=== PATIENT | female | born 1975 | race Caucasian/White ===

== ENCOUNTER → 2017-03-06 | Outpatient (CLI) | payer OTHER, BC ==
[~2017-03-06] MED LIST: CHEWABLE ASPIRI81 M1 PO; FLAGYL500 MG PO; HYDROCHLOROTH12.5 M1 PO; HYZAAR 50-12.51 EACH PO; PREDNISONE 20MG20 MG PO; PRILOSEC20 MG PO; VITAMIN C500 M3 PO; XYZAL5 MG PO; ZYRTEC10 MG PO
--- NOTE | 2017-03-06 13:28 | RADIOLOGY REPORT PS360 ---
US RUQ-(ABD LTD)1ORGAN/QUAD/FU HISTORY: ELEVATED LIVER ENZYMES ORDERING PHYSICIAN: Chai Zuniga MD PATIENT AGE: 41 years COMPARISON: None FINDINGS: PANCREAS:Unremarkable. No obvious mass or abnormal fluid collection. No ductal dilatation LIVER:No focal liver lesions demonstrated. Homogeneous echogenicity. No intrahepatic biliary ductal dilatation evident RIGHT KIDNEY:Unremarkable. Normal size and echogenicity. No hydronephrosis GALLBLADDER:No gallstones, gallbladder wall thickening, pericholecystic fluid, or biliary dilatation. IMPRESSION: Unremarkable right upper quadrant ultrasound
== END ==
LOC: RAD 08:00
DX: R74.8 Abnormal levels of other serum enzymes (principal)